=== PATIENT | female | born 1985 | race Two or more races ===

== ENCOUNTER 2023-01-19 09:49 | Inpatient (IN) | payer BC ==
[2023-01-19] MEDS ORDERED: Ondansetron 4 MG/2 ML SDV IVPUSH PRN (11:15)
[2023-01-19] MEDS ORDERED: Nalbuphine HCl 10 MG/ 1ML Amp IVPUSH PRN (11:15)
[2023-01-19] MEDS ORDERED: Lidocaine 1% 50 ML MDV INJECT SCH (11:15)
[2023-01-19] MEDS ORDERED: Acetaminophen 325 MG Tab PO PRN (11:15)
[2023-01-19] MEDS ORDERED: Sodium Chloride 0.9% 10 ML Syringe FLUSH PRN (11:15)
[2023-01-19] MEDS ORDERED: Oxytocin/Lactated Ringers 10 UNIT/1,000 ML BAG IV SCH ×2 (11:15)
[2023-01-19 11:33] LABS: BASOPHILS ABSOLUTE AUTO 0.1 K/mm3 (0.0-0.2); BASOPHILS PERCENT AUTO 0.3 % (0.0-1.0); EOSINOPHILS PERCENT AUTO 0.2 % (0.0-6.0); HEMATOCRIT 33.7 % (37.0-47.0); HEMOGLOBIN 11.3 gm/dl (12.0-16.0); IMMATURE GRAN ABSOLUTE AUTO 0.09 K/mm3 (0.00-0.05); IMMATURE GRAN PERCENT AUTO 0.6 % (0.0-0.4); LYMPHOCYTES ABSOLUTE AUTO 1.2 K/mm3 (1.0-4.8); LYMPHOCYTES PERCENT AUTO 7.8 % (24.0-44.0); MEAN CORPUSCULAR HEMOGLOBIN 29.3 pg (28.0-32.0); MEAN CORPUSCULAR HGB CONC 33.5 g/dl (32.0-36.0); MEAN CORPUSCULAR VOLUME 87.3 fl (83.0-99.0); MEAN PLATELET VOLUME 10.6 fl (9.4-12.3); MONOCYTES ABSOLUTE AUTO 0.8 K/mm3 (0.0-0.8); MONOCYTES PERCENT AUTO 5.1 % (0.0-8.0); NEUTROPHILS ABSOLUTE AUTO 13.2 K/mm3 (1.8-7.7); PLATELET COUNT,PLT 233 K/mm3 (150-400); RED BLOOD CELL COUNT 3.86 M/mm3 (4.10-5.30); WHITE BLOOD CELL COUNT,WBC 15.39 K/mm3 (3.9-11.3)
[2023-01-19] MEDS ORDERED: Docusate Sodium 100 MG Cap PO PRN (12:12)
[2023-01-19] MEDS: Lactated Ringers 1,000 ML IV SCH ×3 (12:12→16:44)
[2023-01-19] MEDS ORDERED: ePHEDrine 50 MG/ML SDV IVPUSH PRN ×2 (12:32→19:29)
[2023-01-19] MEDS ORDERED: Bupivacaine/fentaNYL/NS 100 ML Bag EPIDUR PRN (12:32)
[2023-01-19] MEDS ORDERED: fentaNYL 100 MCG/2 ML SDV EPIDUR PRN (12:32)
[2023-01-19] MEDS ORDERED: diphenhydrAMINE 50 MG/ML SDV IVPUSH PRN ×2 (12:32→19:29)
[2023-01-19] MEDS ORDERED: Morphine PF 10 MG/10 ML SDV ONE (17:17)
[2023-01-19] MEDS ORDERED: Citric Acid/Sodium Citrate Solution 30 ML Cup PO ONE (17:18)
[2023-01-19] MEDS ORDERED: Metoclopramide 10 MG/2 ML SDV IVPUSH ONE (17:18)
[2023-01-19] MEDS ORDERED: ceFAZolin 2 GM in Sodium Chloride 0.9% 50 ML IV ONE (17:18)
[2023-01-19] MEDS ORDERED: ceFAZolin 2 GM Vial ONE (17:29)
[2023-01-19] MEDS ORDERED: Phenylephrine 1% 10 MG/ML SDV ONE (17:29)
[2023-01-19] MEDS ORDERED: Lactated Ringers 1,000 ML IV ONE (17:30)
[2023-01-19] MEDS ORDERED: Methylergonovine 0.2 MG/1 ML Amp ONE (17:30)
[2023-01-19] MEDS ORDERED: Lidocaine 1% 30 ML SDV ONE (17:30)
[2023-01-19] MEDS ORDERED: Oxytocin 10 Units/1 ML SDV ONE ×2 (17:32→18:11)
[2023-01-19] MEDS ORDERED: fentaNYL 100 MCG/2 ML SDV ONE (17:37)
[2023-01-19] MEDS ORDERED: Neostigmine Methylsulfate 10 MG/10 ML MDV ONE (17:45)
[2023-01-19] MEDS ORDERED: Propofol 200 MG/20 ML SDV ONE (17:59)
[2023-01-19] MEDS ORDERED: Succinylcholine 200 MG/10 ML MDV ONE (18:00)
[2023-01-19] MEDS ORDERED: Bupivacaine 0.25% 10 ML SDV ONE (18:00)
[2023-01-19] MEDS ORDERED: Dexamethasone 4 MG/ML SDV ONE (18:23)
[2023-01-19] MEDS ORDERED: Ketorolac 30 MG/ML SDV ONE (18:23)
[2023-01-19] MEDS ORDERED: Ondansetron 4 MG/2 ML SDV ONE (18:23)
[2023-01-19] MEDS ORDERED: Ondansetron 4 MG/2 ML SDV IV PRN (19:29)
[2023-01-19] MEDS ORDERED: Dextrose 5%-Lactated Ringers 1,000 ML IV SCH (19:29)
[2023-01-19] MEDS: Acetaminophen/oxyCODONE 325-5 MG Tab PO PRN (20:22)
[2023-01-19] MEDS ORDERED: Sodium Chloride 0.9% 10 ML Syringe FLUSH SCH (21:00)
[2023-01-20] MEDS: Ketorolac 30 MG/ML SDV IVPUSH SCH ×3 (00:55→13:20)
[2023-01-20] MEDS: Docusate Sodium 100 MG Cap PO PRN ×2 (04:38→17:06)
[2023-01-20] MEDS: Acetaminophen/oxyCODONE 325-5 MG Tab PO PRN ×3 (04:38→21:24)
[2023-01-20 05:39] LABS: BASOPHILS PERCENT AUTO 0.2 % (0.0-1.0); EOSINOPHILS PERCENT AUTO 0.1 % (0.0-6.0); HEMATOCRIT 24.8 % (37.0-47.0); IMMATURE GRAN ABSOLUTE AUTO 0.07 K/mm3 (0.00-0.05); IMMATURE GRAN PERCENT AUTO 0.4 % (0.0-0.4); LYMPHOCYTES ABSOLUTE AUTO 1.1 K/mm3 (1.0-4.8); LYMPHOCYTES PERCENT AUTO 6.1 % (24.0-44.0); MEAN CORPUSCULAR HEMOGLOBIN 29.6 pg (28.0-32.0); MEAN CORPUSCULAR HGB CONC 33.5 g/dl (32.0-36.0); MEAN CORPUSCULAR VOLUME 88.6 fl (83.0-99.0); MEAN PLATELET VOLUME 11.3 fl (9.4-12.3); MONOCYTES ABSOLUTE AUTO 1.2 K/mm3 (0.0-0.8); MONOCYTES PERCENT AUTO 7.1 % (0.0-8.0); NEUTROPHILS ABSOLUTE AUTO 14.9 K/mm3 (1.8-7.7); NEUTROPHILS PERCENT AUTO 86.1 % (41.0-71.0); PLATELET COUNT,PLT 188 K/mm3 (150-400); WHITE BLOOD CELL COUNT,WBC 17.25 K/mm3 (3.9-11.3)
[2023-01-20 05:54] LABS: HEMOGLOBIN 8.3 gm/dl (12.0-16.0)
[2023-01-20] MEDS ORDERED: FLU (Flulaval Quad) 2023-24(6MOS UP)/PF 60 MCG/0.5 ML Syringe IM ONE (08:00)
[2023-01-20] MEDS: Ibuprofen 600 MG Tab PO PRN (20:44)
[2023-01-21] MEDS: Acetaminophen/oxyCODONE 325-5 MG Tab PO PRN ×2 (07:49→22:19)
[2023-01-21] MEDS: Ibuprofen 600 MG Tab PO PRN (07:50)
[2023-01-21] MEDS: Docusate Sodium 100 MG Cap PO PRN ×2 (07:50→22:15)
[2023-01-21] MEDS ORDERED: FLU (Flulaval Quad) 2023-24(6MOS UP)/PF 60 MCG/0.5 ML Syringe IM ONE ×2 (09:00)
[2023-01-21] MEDS ORDERED: Simethicone 80 MG Tab.Chew PO PRN (15:58)
[2023-01-21] MEDS ORDERED: Lidocaine 1.5% with EPINEPHrine 1:200,000 5 ML Amp ONE (16:00)
== END 2023-01-22 12:08 | disposition home or self-care (01) | DRG 540 ==
LOC: JD.OBCHECK 09:49 → JD.OB 09:55 → JD.OBCHECK 09:55 → JD.OB 11:15 → OBSVTOIN 18:07 → JD.OB 18:42
PROVIDERS: ADMIT Obstetrics & Gynecology; ATTEND Obstetrics & Gynecology
PROC: 10D00Z1 Extraction of Products of Conception, Low, Open Approach (ICD-10-PCS; principal; 2023-01-19)
PROC: 3E0234Z Introduction of Serum, Toxoid and Vaccine into Muscle, Percutaneous Approach (ICD-10-PCS; 2023-01-19)
PROC: 0U7C7ZZ Dilation of Cervix, Via Natural or Artificial Opening (ICD-10-PCS; 2023-01-19)
DX: O34.211 Maternal care for low transverse scar from previous cesarean delivery (principal); O76 Abnormality in fetal heart rate and rhythm complicating labor and delivery; Z37.0 Single live birth; Z3A.39 39 weeks gestation of pregnancy; Z91.89 Other specified personal risk factors, not elsewhere classified; Z23 Encounter for immunization
CPT/HCPCS: 36415; 51702; 59025; 85025; 86592; 86850; 86900; 86901; 90686; A9270-GY; C1726; G0008; J0330; J0690; J1100; J1885; J2210; J2274; J2371; J2405; J2590; J2704; J2710; J2765; J3010; J3490; J7120; J7121